=== PATIENT | male | born 1960 | race American Indian/Alaskan Native ===

== ENCOUNTER 2017-05-12 10:21 | Emergency (ER) | payer MEDICAID ==
[2017-05-12 10:21] VITALS: BMI 23.4
--- NOTE | 2017-05-12 11:02 | ED PDOC ---
HPI: General Adult Time Seen by Provider: 05/12/17 10:41 Chief Complaint (Nursing): Weakness/Neurological Deficit History Per: Patient Onset/Duration Of Symptoms: Other (2 months) Current Symptoms Are (Timing): Still Present Severity: Mild Additional Complaint(s): 12 lb weight loss over 2 months assoc with nausea, loss of apatite. Denies fever , no bloody or dark stools. No vomiting. Has had intermittent dizziness and body tremors. Non productive cough lately. Denies SOB Past Medical History Vital Signs: Last Vital Signs Temp 97.8 F 05/12/17 10:36 Pulse 77 05/12/17 10:36 Resp 16 05/12/17 10:36 BP 119/75 05/12/17 10:36 Pulse Ox 97 05/12/17 11:02 - Medical History PMH: Depression, Gastritis, HIV, HTN, Pancreatitis (2006) - Surgical History Surgical History: Cholecystectomy (2013) - Family History Family History: States: Unknown Family Hx - Home Medications Home Medications: Ambulatory Orders Medication Instructions Recorded Gabapentin 300 mg PO TID 04/25/13 Protonix 40 mg PO DAILY 04/25/13 Valtrex 500 mg PO Q12 04/25/13 Amlodipine Besylate 5 mg PO DAILY 08/01/14 Efavirenz [Sustiva] 600 mg PO DAILY 08/01/14 Ergocalciferol (Vitamin D2) 50,000 iu PO QWK 08/01/14 [Vitamin D] Fosamprenavir Calcium [Lexiva] 2 tab PO BID 08/01/14 Hydroxyzine Pamoate 25 mg PO Q4 08/01/14 Lisinopril 10 mg PO DAILY 08/01/14 Loperamide [Imodium] 1 tab PO PRN PRN 08/01/14 Pravastatin Sodium 80 mg PO HS 08/01/14 Raltegravir Potassium [Isentress] 400 mg PO BID 08/01/14 Dicyclomine [Dicyclomine HCl] 10 mg PO Q8 #10 cap 05/12/17 Meclizine [Meclizine*] 25 mg PO Q8 #15 tab 05/12/17 - Allergies Allergies/Adverse Reactions: Allergies Allergy/AdvReac Type Severity Reaction Status Date / Time No Known Allergies Allergy Verified 08/01/14 08:24 Review of Systems ROS Statement: Except As Marked, All Systems Reviewed And Found Negative Constitutional: Positive for: Weight loss Respiratory: Positive for: Cough Physical Exam - Reviewed Nursing Documentation Reviewed: Yes Vital Signs Reviewed: Yes - Physical Exam Appears: Positive for: Non-toxic, No Acute Distress Head Exam: Positive for: ATRAUMATIC, NORMAL INSPECTION, NORMOCEPHALIC Skin: Positive for: Normal Color, Warm, DRY Eye Exam: Positive for: EOMI, Normal appearance, PERRL ENT: Positive for: Normal ENT Inspection Neck: Positive for: Normal, Painless ROM Cardiovascular/Chest: Positive for: Regular Rate, Rhythm Respiratory: Positive for: CNT, Normal Breath Sounds Gastrointestinal/Abdominal: Positive for: Bowel Sounds, Soft, Tenderness (LLQ). Negative for: Organomegaly, Mass Back: Positive for: Normal Inspection Extremity: Positive for: Normal ROM Neurologic/Psych: Positive for: Alert, Oriented - Laboratory Results Result Diagrams: 05/12/17 11:14 05/12/17 11:14 - ECG O2 Sat by Pulse Oximetry: 97 Disposition - Clinical Impression Clinical Impression: Diverticulosis - Patient ED Disposition Is Patient to be Admitted: No Counseled Patient/Family Regarding: Studies Performed, Diagnosis, Need For Followup, Rx Given - Disposition Referrals: Sadie De Leon MD [Medical Doctor] - Shayne Cheney MD [Medical Doctor] - [facility] [Outside] Disposition: Routine/Home Disposition Time: 13:50 Condition: FAIR Prescriptions: Dicyclomine [Dicyclomine HCl] 10 mg PO Q8 #10 cap Meclizine [Meclizine*] 25 mg PO Q8 #15 tab Instructions: Diverticulosis Forms: [employer] (Czech)
--- NOTE | 2017-05-12 11:18 | RAD ---
HISTORY: COMPARISON: 04/29/2016. TECHNIQUE: Chest PA and lateral FINDINGS: LINES AND TUBES: None. LUNG AND PLEURA: The lungs are well inflated and clear. HEART AND MEDIASTINUM: The heart is not enlarged. The hilar and mediastinal contours are within normal limits. SKELETAL STRUCTURES: The bony structures are within normal limits for the patient's age. VISUALIZED UPPER ABDOMEN: Normal. OTHER FINDINGS: None. IMPRESSION: No active pulmonary disease.
[2017-05-12 11:39] LABS: ALB/GLOB RATIO 1.2 (1.0-2.1); ALBUMIN 4.2 g/dL (3.5-5.0); ALT/SGPT 29 U/L (21-72); AST/SGOT 25 U/L (17-59); BLOOD UREA NITROGEN 23 mg/dl (9-20); CALCIUM 9.6 mg/dL (8.4-10.2); GFR AFRICAN-AMERICAN > 60; GFR NON-AFRICAN AMERICAN 52
[2017-05-12 11:54] LABS: BASO % 0.2 % (0.0-2.0); EOS % 1.2 % (0.0-4.0); HEMOGLOBIN 15.1 g/dL (12.0-18.0); LYMPH # 1.5 K/uL (1.0-4.3); LYMPH % 39.7 % (20.0-40.0); MEAN CELL VOLUME 88.3 fl (80.0-94.0); MEAN CORPUSCULAR HEMOGLOBIN 29.7 pg (27.0-31.0); MEAN CORPUSCULAR HGB CONC 33.6 g/dL (33.0-37.0); MONO # 0.6 K/uL (0.0-0.8); NEUT # 1.7 K/uL (1.8-7.0); NEUT % 43.9 % (50.0-75.0); NRBC % 0.2 % (0.0-0.0); RBC 5.08 Mil/uL (4.40-5.90); RED CELL DISTRIBUTION WIDTH 14.6 % (11.5-14.5); WHITE BLOOD COUNT 3.8 K/uL (4.8-10.8)
[2017-05-12] MEDS ORDERED: Iohexol 300 100 ML IJ ONE (12:21)
--- NOTE | 2017-05-12 13:08 | CT ---
PROCEDURE: CT HEAD WITHOUT CONTRAST. HISTORY: r/o bleed COMPARISON: 10/23/2014 TECHNIQUE: Axial computed tomography images were obtained through the head/brain without intravenous contrast. Radiation dose: Total exam DLP = 869.15 mGy-cm. This CT exam was performed using one or more of the following dose reduction techniques: Automated exposure control, adjustment of the mA and/or kV according to patient size, and/or use of iterative reconstruction technique. FINDINGS: HEMORRHAGE: No intracranial hemorrhage. BRAIN: No mass effect or edema. No atrophy or chronic microvascular ischemic changes. VENTRICLES: Unremarkable. No hydrocephalus. CALVARIUM: Unremarkable. PARANASAL SINUSES: Unremarkable as visualized. No significant inflammatory changes. MASTOID AIR CELLS: Unremarkable as visualized. No inflammatory changes. OTHER FINDINGS: None. IMPRESSION: Normal CT of the Head. No intracranial mass, hemorrhage or evidence of acute infarct.
--- NOTE | 2017-05-12 13:36 | CT ---
PROCEDURE: CT Abdomen and Pelvis with contrast HISTORY: Abdominal pain and weight loss COMPARISON: None. TECHNIQUE: CT scan of the abdomen and pelvis was performed after administration of intravenous contrast. Oral contrast was not administered. Coronal and sagittal reformatted images were obtained. Contrast dose: 98 mL Omnipaque 300 Radiation dose: Total exam DLP = 416.74 mGy-cm. This CT exam was performed using one or more of the following dose reduction techniques: Automated exposure control, adjustment of the mA and/or kV according to patient size, and/or use of iterative reconstruction technique. FINDINGS: LOWER THORAX: The right lung base is clear. There is subsegmental atelectasis in the left lung base. LIVER: Normal in size and there is diffuse fatty infiltration. No gross lesion or intrahepatic ductal dilatation. GALLBLADDER AND BILE DUCTS: Surgically absent. Mild diffuse dilatation of the common bile duct is in keeping with postcholecystectomy status. PANCREAS: Normal in size with homogeneous enhancement. No gross lesion or ductal dilatation. SPLEEN: Normal in size and appearance. ADRENALS: No discrete nodule. KIDNEYS AND URETERS: Both kidneys are normal in size and there is homogeneous enhancement. There is bilateral cortical scarring. There is a 6 mm nonobstructing stone in the lower pole of the right kidney. No hydronephrosis. VASCULATURE: There are atherosclerotic aortoiliac calcifications. No aortic aneurysm. BOWEL: Evaluation of the bowel is limited in the absence of oral contrast. The small bowel loops are normal in caliber. There is extensive sigmoid diverticulosis without CT evidence for acute diverticulitis. No bowel dilatation or obstruction. APPENDIX: Normal appendix. PERITONEUM: No free fluid. No free air. LYMPH NODES: No enlarged lymph nodes. BLADDER: Grossly normal in appearance. REPRODUCTIVE: Unremarkable. BONES: No acute fracture. There is a hemangioma in the L3 vertebral body. OTHER FINDINGS: None. IMPRESSION: No acute abdominal or pelvic abnormality. Extensive sigmoid diverticulosis without CT evidence for acute diverticulitis. Fatty liver. 6 mm nonobstructing stone in the lower pole of the right kidney. Bilateral renal cortical scarring, likely a sequela of remote infection/inflammation.
[2017-05-12 14:21] VITALS: BP 110/60; PULSE 81; RESP 18; TEMP 98.6; O2SAT 98
== END 2017-05-12 14:26 | disposition home or self-care (01) ==
LOC: H.ER 10:21
DX: K57.30 Diverticulosis of large intestine without perforation or abscess without bleeding (principal); K76.0 Fatty (change of) liver, not elsewhere classified; I10 Essential (primary) hypertension
CPT/HCPCS: 70450; 71046; 74177; 80053; 85025; 99281; Q9967

== ENCOUNTER 2017-05-19 14:38 | Inpatient (IN) | payer MEDICAID, OTHER ==
[2017-05-19 14:38] VITALS: BMI 23.4
--- NOTE | 2017-05-19 14:53 | ED PDOC ---
HPI: Psych/Substance Abuse Time Seen by Provider: 05/19/17 14:52 Chief Complaint (Nursing): Psychiatric Evaluation Chief Complaint (Provider): crisis eval History Per: Patient, EMS Additional Complaint(s): 57-year-old male presents to emergency department for crisis evaluation. Patient was at his therapist's office this morning and was expressing thoughts of wanting to harm himself. Ambulance was called and he was brought here for further evaluation. Patient denies actual plan. States if he were to go through with suicide he would overdose on medications. Patient states he does not use any alcohol or drugs. Patient offers no acute medical complaints at this time PMD: Dr. Portillo Past Medical History Reviewed: Historical Data, Nursing Documentation, Vital Signs Vital Signs: Last Vital Signs Temp 98.0 F 05/19/17 14:42 Pulse 79 05/19/17 14:42 Resp 16 05/19/17 14:42 BP 122/71 05/19/17 14:42 Pulse Ox 98 05/19/17 14:42 - Medical History PMH: Depression, Gastritis, HIV, HTN - Surgical History Surgical History: Cholecystectomy (2013) - Family History Family History: States: No Known Family Hx - Social History Current smoker - smoking cessation education provided: No Alcohol: None Drugs: Denies - Home Medications Home Medications: Ambulatory Orders Medication Instructions Recorded Gabapentin 300 mg PO TID 04/25/13 Protonix 40 mg PO DAILY 04/25/13 Valtrex 500 mg PO Q12 04/25/13 Amlodipine Besylate 5 mg PO DAILY 08/01/14 Efavirenz [Sustiva] 600 mg PO DAILY 08/01/14 Ergocalciferol (Vitamin D2) 50,000 iu PO QWK 08/01/14 [Vitamin D] Fosamprenavir Calcium [Lexiva] 2 tab PO BID 08/01/14 Hydroxyzine Pamoate 25 mg PO Q4 08/01/14 Lisinopril 10 mg PO DAILY 08/01/14 Loperamide [Imodium] 1 tab PO PRN PRN 08/01/14 Pravastatin Sodium 80 mg PO HS 08/01/14 Raltegravir Potassium [Isentress] 400 mg PO BID 08/01/14 Dicyclomine [Dicyclomine HCl] 10 mg PO Q8 #10 cap 05/12/17 Meclizine [Meclizine*] 25 mg PO Q8 #15 tab 05/12/17 Oseltamivir [Tamiflu] 75 mg PO BID #10 cap 05/12/17 - Allergies Allergies/Adverse Reactions: Allergies Allergy/AdvReac Type Severity Reaction Status Date / Time No Known Allergies Allergy Verified 08/01/14 08:24 Review of Systems ROS Statement: Except As Marked, All Systems Reviewed And Found Negative Psych: Positive for: Depression, Suicidal ideation Physical Exam - Reviewed Nursing Documentation Reviewed: Yes Vital Signs Reviewed: Yes - Physical Exam Appears: Positive for: Well, Non-toxic, No Acute Distress Head Exam: Positive for: ATRAUMATIC, NORMAL INSPECTION, NORMOCEPHALIC Skin: Negative for: Rash Eye Exam: Positive for: Normal appearance Cardiovascular/Chest: Positive for: Regular Rate, Rhythm Respiratory: Positive for: Normal Breath Sounds Gastrointestinal/Abdominal: Positive for: Soft. Negative for: Tenderness, Distended, Guarding, Rebound Neurologic/Psych: Positive for: Alert, Oriented, Mood/Affect (flat) - Laboratory Results Result Diagrams: 05/19/17 15:50 05/19/17 15:50 - ECG Interpretation Of ECG: Sinus rhythm 80 bpm with PACs, reviewed by PA and ED attending O2 Sat by Pulse Oximetry: 98 Pulse Ox Interpretation: Normal - Other Rad CXR X-Ray: Interpreted by Me, Viewed By Me X-Ray Interpretation: no acute finding Medical Decision Making Medical Decision Makin57 year old male here for crisis eval Plan: Crisis consult 1:1 observation CBC CMP BAL UDS UA CXR EKG As per crisis counselor and psychiatrist mechanical applications engineer, Dr. Bermudez, patient does meet criteria for admission. Patient agrees to stay. Patient is medically stable for psychiatric admission. Disposition - Clinical Impression Clinical Impression: Depression - Patient ED Disposition Is Patient to be Admitted: Yes - Disposition Disposition Time: 17:17 Condition: FAIR - Pt Status Changed To: Hospital Disposition Of: Inpatient - Admit Certification Admit to Inpatient:: After my assessment, the patient will require hospitalization for at least two midnights. This is because of the severity of symptoms shown, intensity of services needed, and/or the medical risk in this patient being treated as an outpatient. - POA Present On Arrival: None Results - Lab Results Lab Results: 05/19/17 05/19/17 05/19/17 17:05 15:50 15:50 WBC 4.1 L RBC 4.99 Hgb 14.6 Hct 44.5 MCV 89.1 MCH 29.2 MCHC 32.8 L RDW 15.0 H Plt Count 203 MPV 9.2 Neut % (Auto) 40.0 L Lymph % (Auto) 45.4 H [place] % (Auto) 13.6 H Eos % (Auto) 0.8 Baso % (Auto) 0.2 Neut # (Auto) 1.7 L Lymph # (Auto) 1.9 [place] # (Auto) 0.6 Eos # (Auto) 0.0 Baso # (Auto) 0.0 Sodium 144 Potassium 4.2 Chloride 103 Carbon Dioxide 27 Anion Gap 18 BUN 20 Creatinine 1.5 Est GFR ( Amer) 58 Est GFR (Non-Af Amer) 48 Random Glucose 96 Calcium 9.7 Total Bilirubin 0.6 AST 28 ALT 46 Alkaline Phosphatase 55 Total Protein 8.2 Albumin 4.5 Globulin 3.7 Albumin/Globulin Ratio 1.2 Urine Color Urine Clarity Urine pH Ur Specific [place] Urine Protein Urine Glucose (UA) Urine Ketones Urine Blood Urine Nitrate Urine Bilirubin Urine Urobilinogen Ur Leukocyte Esterase Urine RBC (Auto) Urine Microscopic WBC Urine Opiates Screen Negative Urine Methadone Screen Negative Ur Barbiturates Screen Negative Ur Phencyclidine Scrn Negative Ur Amphetamines Screen Negative U Benzodiazepines Scrn Negative U Oth Cocaine Metabols Negative U Cannabinoids Screen Negative Alcohol, Quantitative < 10 05/19/17 15:20 WBC RBC Hgb Hct MCV MCH MCHC RDW Plt Count MPV Neut % (Auto) Lymph % (Auto) [place] % (Auto) Eos % (Auto) Baso % (Auto) Neut # (Auto) Lymph # (Auto) [place] # (Auto) Eos # (Auto) Baso # (Auto) Sodium Potassium Chloride Carbon Dioxide Anion Gap BUN Creatinine Est GFR ( Amer) Est GFR (Non-Af Amer) Random Glucose Calcium Total Bilirubin AST ALT Alkaline Phosphatase Total Protein Albumin Globulin Albumin/Globulin Ratio Urine Color Yellow Urine Clarity Clear Urine pH 6.0 Ur Specific [place] 1.017 Urine Protein Negative Urine Glucose (UA) Neg Urine Ketones Negative Urine Blood Negative Urine Nitrate Negative Urine Bilirubin Negative Urine Urobilinogen 0.2-1.0 Ur Leukocyte Esterase Neg Urine RBC (Auto) < 1 Urine Microscopic WBC 1 Urine Opiates Screen Urine Methadone Screen Ur Barbiturates Screen Ur Phencyclidine Scrn Ur Amphetamines Screen U Benzodiazepines Scrn U Oth Cocaine Metabols U Cannabinoids Screen Alcohol, Quantitative
[2017-05-19 16:04] LABS: BASO % 0.2 % (0.0-2.0); EOS % 0.8 % (0.0-4.0); HEMOGLOBIN 14.6 g/dL (12.0-18.0); LYMPH # 1.9 K/uL (1.0-4.3); LYMPH % 45.4 % (20.0-40.0); MEAN CELL VOLUME 89.1 fl (80.0-94.0); MEAN CORPUSCULAR HEMOGLOBIN 29.2 pg (27.0-31.0); MEAN CORPUSCULAR HGB CONC 32.8 g/dL (33.0-37.0); MEAN PLATELET VOLUME 9.2 fl (7.2-11.7); MONO # 0.6 K/uL (0.0-0.8); MONO % 13.6 % (0.0-10.0); NEUT # 1.7 K/uL (1.8-7.0); NRBC % 0.2 % (0.0-0.0); RBC 4.99 Mil/uL (4.40-5.90); WHITE BLOOD COUNT 4.1 K/uL (4.8-10.8)
--- NOTE | 2017-05-19 16:10 | RAD ---
HISTORY: clearance COMPARISON: 05/12/2017. FINDINGS: LUNGS: No active pulmonary disease. PLEURA: No significant pleural effusion identified, no pneumothorax apparent. CARDIOVASCULAR: No radiographic findings to suggest acute or significant cardiovascular disease. OSSEOUS STRUCTURES: No significant abnormalities. VISUALIZED UPPER ABDOMEN: Normal. OTHER FINDINGS: None. IMPRESSION: No active disease. No significant interval change compared to the prior examination(s).
[2017-05-19 16:30] LABS: ALB/GLOB RATIO 1.2 (1.0-2.1); ALBUMIN 4.5 g/dL (3.5-5.0); ALT/SGPT 46 U/L (21-72); AST/SGOT 28 U/L (17-59); BLOOD UREA NITROGEN 20 mg/dl (9-20); CALCIUM 9.7 mg/dL (8.4-10.2); GFR AFRICAN-AMERICAN 58; GFR NON-AFRICAN AMERICAN 48
[2017-05-19 17:25] LABS: URINE BILIRUBIN NEGATIVE (NEGATIVE); URINE BLOOD NEGATIVE (NEGATIVE); URINE CLARITY CLEAR (Clear); URINE COLOR YELLOW (YELLOW); URINE GLUCOSE (UA) NEG (Normal); URINE LEUKOCYTE ESTERASE NEG Leu/uL (Negative); URINE PROTEIN NEGATIVE (NEGATIVE); URINE UROBILINOGEN 0.2-1.0 mg/dL (0.2-1.0)
[2017-05-19 17:47] LABS: BARBITURATES, UR NEGATIVE (NEGATIVE); BENZODIAZEPINES, UR NEGATIVE (NEGATIVE); OPIATES, UR NEGATIVE (NEGATIVE); PHENCYCLIDINE, UR NEGATIVE (NEGATIVE)
[2017-05-19] MEDS ORDERED: Magnesium Hydroxide Susp 30 ml UD PO PRN (20:17)
[2017-05-19] MEDS ORDERED: DiphenhydrAMINE 50 mg/ml Inj IM PRN (20:17)
[2017-05-19] MEDS ORDERED: Alum-Mag Hydrox-Simethicone Susp (30 mL) PO PRN (20:17)
--- NOTE | 2017-05-19 20:29 | PCM.BM ---
Treatment Plan Problems - Problems identified on initial assessmt Feeling of Worthlessness Date Initiated: 05/19/17 Time Initiated: 20:28 Assessment reference: NA Status: Active Treatment assets and liabiliti Patient Assests: cooperative, self-reliant, ADL independent, good support system , negotiates basic needs Patient Liabilities: relationship conflicts, medical problems - Milieu Protocol Maintain good personal hygiene: daily Encourage regular showers, every shift Remind patient to perform daily oral care, every shift Assist patient to perform ADL's Conduct patient checks and document Observation sheet: Q15 minutes Maintain personal safety: every shift Educate patient to report safety concerns to staff, every shift Monitor environment for contraband/sharps Medication safety: Monitor for expected outcome, potential side effects: every shift, Assess barriers to learning: every shift, Assess readiness for medication education: every shift
[2017-05-19 22:08] VITALS: O2SAT 120
[2017-05-19] MEDS ORDERED: Pneumococcal 23-Valent Vaccine IM ONE (22:08)
[2017-05-20 07:07] LABS: T4 5.15 ug/dl (5.5-11.0)
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
--- NOTE | 2017-05-20 17:14 | CP.PCM.CON ---
<Patricio Frances - Last Filed: 05/20/17 17:51> History of Present Illness - History of Present Illness History of Present Illness: 57 yo M pmhx of pancreatitis, depression, low back pain, herpes, cholecystectomy , HIV, DM, peripheral neuropathy, HTN, Hyperlipidemia, chronic ankle and right knee pain and perianal herpes presents to [facility] voluntarily for recent suicidal ideations without active plan of action. Reports significant events over the past month: losing job, relying on partner and financial difficulties. Reports intermittent headaches at L temporal region, radiating to occipital region. intermittent. Denies photophobia, changes in vision, focal deficits. rates 6/ 10. Is not the worst headache of his life. Denies HI/AH/VH/CP/SOB/N/V/ constipation, diarrhea. Denies leg pain. Reports bilateral feet pain if on his feet for prolonged time. Denies symptoms of gastritis/acid reflux. Review of Systems - Constitutional Constitutional: As Per HPI, Headache - EENT Nose/Mouth/Throat: absent: Odynophagia - Cardiovascular Cardiovascular: absent: Chest Pain - Respiratory Respiratory: absent: Cough, Wheezing - Gastrointestinal Gastrointestinal: absent: Abdominal Pain, Constipation, Diarrhea, Nausea, Vomiting - Genitourinary Genitourinary: absent: Dysuria - Musculoskeletal Musculoskeletal: As Per HPI - Neurological Neurological: As Per HPI. absent: Numbness, Tingling - Psychiatric Psychiatric: As Per HPI, Depression, Suicidal Ideation. absent: Hallucinations , Homicidal Ideation, Visual Hallucinations Past Patient History - Infectious Disease Hx of Infectious Diseases: None - Past Medical History & Family History Past Medical History?: Yes - Past Social History Smoking Status: Unknown If Ever Smoked (denies) Alcohol: None Drugs: Denies Home Situation {Lives}: Friends, Roommate - CARDIAC Hx Cardiac Disorders: Yes Hx Hypercholesterolemia: Yes Hx Hypertension: Yes - PULMONARY Hx Respiratory Disorders: No Hx Tuberculosis: No - NEUROLOGICAL Hx Neurological Disorder: No HX Cerebrovascular Accident: No Hx Seizures: No Other/Comment: peripheral neuropathy - HEENT Hx HEENT Problems: Yes Other/Comment: TINNITUS, LEFT EAR - RENAL Hx Chronic Kidney Disease: No - ENDOCRINE/METABOLIC Hx Endocrine Disorders: No Hx Diabetes Mellitus Type 2: Yes - HEMATOLOGICAL/ONCOLOGICAL Hx Blood Disorders: Yes Hx Human Immunodeficiency Virus (HIV): Yes - INTEGUMENTARY Hx Dermatological Problems: No Other/Comment: perianal herpes - MUSCULOSKELETAL/RHEUMATOLOGICAL Hx Musculoskeletal Disorders: Yes Hx Back Pain: Yes Hx Falls: No Other/Comment: pain of feet, plantar pain - GASTROINTESTINAL Hx Gastrointestinal Disorders: Yes Hx Gastritis: Yes Hx Pancreatitis: Yes - GENITOURINARY/GYNECOLOGICAL Hx Genitourinary Disorders: No Hx Sexually Transmitted Disorders: No - PSYCHIATRIC Hx Depression: Yes 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, sober now) - SURGICAL HISTORY Hx Surgeries: Yes Hx Cholecystectomy: Yes (2013) - ANESTHESIA Hx Anesthesia: Yes Hx Anesthesia Reactions: No Hx Malignant Hyperthermia: No Meds Allergies/Adverse Reactions: Allergies Allergy/AdvReac Type Severity Reaction Status Date / Time No Known Allergies Allergy Verified 08/01/14 08:24 - Medications Medications: Current Medications Acetaminophen (Tylenol 325mg Tab) 650 mg PO Q4 PRN PRN Reason: Pain, moderate (4-7) Last Admin: 05/20/17 15:42 Dose: 650 mg Al Hydrox/Mg Hydrox/Simethicone (Maalox Plus 30 Ml) 30 ml PO Q4 PRN PRN Reason: Dyspepsia Diphenhydramine HCl (Benadryl) 50 mg IM Q6 PRN PRN Reason: Extrapyramidal S/S Unable PO Diphenhydramine HCl (Benadryl) 50 mg PO Q6 PRN PRN Reason: Extrapyramidal Symptoms Duloxetine HCl (Cymbalta) 30 mg PO DAILY [facility] Haloperidol (Haldol) 5 mg PO Q4 PRN PRN Reason: Agitation Haloperidol Lactate (Haldol) 5 mg IM Q4 PRN PRN Reason: Agitation, Unable to Take PO Lorazepam (Ativan) 2 mg IM Q4 PRN PRN Reason: Anxiety/Agitation,Unable PO Lorazepam (Ativan) 1 mg PO Q4 PRN PRN Reason: Anxiety/Agitation Magnesium Hydroxide (Milk Of Magnesia) 30 ml PO HS PRN PRN Reason: Constipation Trazodone HCl (Desyrel) 50 mg PO HS PRN PRN Reason: Insomnia Last Admin: 05/19/17 21:22 Dose: 50 mg Physical Exam - Constitutional Appears: Well, No Acute Distress - Head Exam Head Exam: ATRAUMATIC - Eye Exam Eye Exam: EOMI - Neck Exam Neck exam: Positive for: Full Rom - Respiratory Exam Respiratory Exam: Clear to Auscultation Bilateral, NORMAL BREATHING PATTERN. absent: Wheezes - Cardiovascular Exam Cardiovascular Exam: REGULAR RHYTHM, +S1, +S2 - GI/Abdominal Exam GI & Abdominal Exam: Normal Bowel Sounds, Soft. absent: Tenderness - Neurological Exam Neurological exam: Alert, CN II-XII Intact, Normal Gait, Oriented x3 - Psychiatric Exam Psychiatric exam: Depressed, Suicidal Ideation Results - Vital Signs Recent Vital Signs: Last Vital Signs Temp 97.7 F 05/20/17 09:00 Pulse 81 05/20/17 09:00 Resp 18 05/20/17 09:00 BP 122/78 05/20/17 09:00 Pulse Ox 120 H 05/19/17 20:14 - Labs Result Diagrams: 05/19/17 15:50 05/19/17 15:50 Labs: Laboratory Results - last 24 hr 05/19/17 05/19/17 05/20/17 15:20 17:05 06:00 Hemoglobin A1c Triglycerides 195 H Cholesterol 146 LDL Cholesterol Direct 64 HDL Cholesterol 33 Thyroxine (T4) 5.15 L TSH 3rd Generation 1.11 Urine Color Yellow Urine Clarity Clear Urine pH 6.0 Ur Specific [place] 1.017 Urine Protein Negative Urine Glucose (UA) Neg Urine Ketones Negative Urine Blood Negative Urine Nitrate Negative Urine Bilirubin Negative Urine Urobilinogen 0.2-1.0 Ur Leukocyte Esterase Neg Urine RBC (Auto) < 1 Urine Microscopic WBC 1 Urine Opiates Screen Negative Urine Methadone Screen Negative Ur Barbiturates Screen Negative Ur Phencyclidine Scrn Negative Ur Amphetamines Screen Negative U Benzodiazepines Scrn Negative U Oth Cocaine Metabols Negative U Cannabinoids Screen Negative 05/20/17 06:00 Hemoglobin A1c 5.8 Triglycerides Cholesterol LDL Cholesterol Direct HDL Cholesterol Thyroxine (T4) TSH 3rd Generation Urine Color Urine Clarity Urine pH Ur Specific [place] Urine Protein Urine Glucose (UA) Urine Ketones Urine Blood Urine Nitrate Urine Bilirubin Urine Urobilinogen Ur Leukocyte Esterase Urine RBC (Auto) Urine Microscopic WBC Urine Opiates Screen Urine Methadone Screen Ur Barbiturates Screen Ur Phencyclidine Scrn Ur Amphetamines Screen U Benzodiazepines Scrn U Oth Cocaine Metabols U Cannabinoids Screen Assessment & Plan - Assessment and Plan (Free Text) Plan: 57 yo M pmhx of pancreatitis, depression, low back pain, herpes, cholecystectomy , HIV, DM, peripheral neuropathy, HTN, Hyperlipidemia, chronic ankle and right knee pain and perianal herpes presents to [facility] voluntarily for recent suicidal ideations without active plan of action. Suicidal Ideation with depression - Currently managed by psychiatry HIV - 04/25/2017: VL: <20; CD4: 712; %: 35.6 - On [place]: nonformulary; asked patient to bring meds HTN - Continue home meds: Amlodipine and Lisinopril - Monitor vital signs pre DM - last a1c 04/25/2017: 5.5 - continue metformin - monitor glucose via CMP herpes -currently asx -Valtrex prn DVT prophylxaxis -pt ambulating -scds <Evelina Mcneil - Last Filed: 05/21/17 09:49> Meds - Medications Medications: Current Medications Acetaminophen (Tylenol 325mg Tab) 650 mg PO Q4 PRN PRN Reason: Pain, moderate (4-7) Last Admin: 05/20/17 15:42 Dose: 650 mg Al Hydrox/Mg Hydrox/Simethicone (Maalox Plus 30 Ml) 30 ml PO Q4 PRN PRN Reason: Dyspepsia Amlodipine Besylate (Norvasc) 5 mg PO DAILY [facility] Dicyclomine HCl (Bentyl) 10 mg PO Q8 [facility] Last Admin: 05/21/17 09:07 Dose: 10 mg Diphenhydramine HCl (Benadryl) 50 mg IM Q6 PRN PRN Reason: Extrapyramidal S/S Unable PO Diphenhydramine HCl (Benadryl) 50 mg PO Q6 PRN PRN Reason: Extrapyramidal Symptoms Duloxetine HCl (Cymbalta) 30 mg PO DAILY [facility] Last Admin: 05/21/17 09:08 Dose: 30 mg Ergocalciferol (Drisdol 50,000 Intl Units Cap) 1 cap PO QWK [facility] Gabapentin (Neurontin) 300 mg PO TID [facility] Last Admin: 05/21/17 09:08 Dose: 300 mg Haloperidol (Haldol) 5 mg PO Q4 PRN PRN Reason: Agitation Haloperidol Lactate (Haldol) 5 mg IM Q4 PRN PRN Reason: Agitation, Unable to Take PO Home Med (Valtrex) 500 mg PO Q12 [facility] Hydroxyzine Pamoate (Vistaril) 25 mg PO Q4 [facility] Last Admin: 05/21/17 09:14 Dose: 25 mg Lisinopril (Zestril) 10 mg PO DAILY [facility] Loperamide HCl (Imodium) 2 mg PO PRN PRN PRN Reason: Diarrhea Lorazepam (Ativan) 2 mg IM Q4 PRN PRN Reason: Anxiety/Agitation,Unable PO Lorazepam (Ativan) 1 mg PO Q4 PRN PRN Reason: Anxiety/Agitation Magnesium Hydroxide (Milk Of Magnesia) 30 ml PO HS PRN PRN Reason: Constipation Meclizine HCl (Antivert) 25 mg PO Q8 [facility] Last Admin: 05/21/17 09:07 Dose: 25 mg Metformin HCl (Glucophage) 500 mg PO BIDWM [facility] Last Admin: 05/21/17 09:07 Dose: 500 mg Pantoprazole Sodium (Protonix Ec Tab) 40 mg PO DAILY [facility] Last Admin: 05/21/17 09:14 Dose: 40 mg Pravastatin Sodium (Pravachol) 80 mg PO HS [facility] Last Admin: 05/20/17 21:07 Dose: 80 mg Trazodone HCl (Desyrel) 50 mg PO HS PRN PRN Reason: Insomnia Last Admin: 05/20/17 21:07 Dose: 50 mg Results - Vital Signs Recent Vital Signs: Last Vital Signs Temp 96.6 F L 05/20/17 17:00 Pulse 84 05/20/17 17:00 Resp 18 05/20/17 17:00 BP 123/64 05/20/17 17:00 Pulse Ox 120 H 05/19/17 20:14 - Labs Result Diagrams: 05/19/17 15:50 05/19/17 15:50 Labs: Laboratory Results - last 24 hr 05/20/17 05/20/17 06:00 06:00 Hemoglobin A1c 5.8 RPR Nonreactive Attending/Attestation - Attestation I have personally seen and examined this patient.: Yes I have fully participated in the care of the patient.: Yes I have reviewed all pertinent clinical information: Yes Notes (Text): 05/21/17 09:49 PATIENT SEEN AND EXAMINED. CASE DISCUSSED WITH RESIDENT. AGREE WITH FINDINGS AND PLAN
[2017-05-20] MEDS ORDERED: Ergocalciferol 50,000 Intl Units Cap PO SCH (17:45)
--- NOTE | 2017-05-20 18:13 | CARD ---
APPROVED REPORT EKG Measurement Heart [id number] <Conclusion> Sinus rhythm
[2017-05-20] MEDS ORDERED: VALTREX 500 MG PO SCH (21:00)
[2017-05-20] MEDS: Pravastatin Sodium 40 MG TAB PO SCH (21:07)
[2017-05-21] MEDS: Pantoprazole 40 mg EC Tab PO SCH (09:14)
--- NOTE | 2017-05-21 09:50 | PCM.PYCHPN ---
Psychiatric Progress Note - Psychiatric Progress Note Patient seen today, length of contact: Patient evaluated, case discussed w/ team , chart reviewed Patient Chief Complaint: "I'm okay." Problems Identified/Issues Discussed: Patient is goal oriented, stating that he wants to leave the hospital to finish his paper for school. He reports that he has a headache and does not want to increase the Cymbalta due to concerns that it maybe causing his headache. He denies acute AH/VH/SI/HI. He denies any active suicidal ideation/plan/intent. He feels more hopeful for the future. He reports difficulty sleeping at night. Medication Change: No Medical Record Reviewed: Yes Consults ordered or reviewed: Medicine Mental Status Examination - Cognitive Function Orientation: Person, Place, Situation, Time Memory: Intact Attention: WNL Concentration: WNL Association: WN Fund of Knowledge: WNL - Mood Mood: Depressed - Affect Affect: Constricted - Speech Speech: Appropriate - Formal Thought Process Formal Thought Process: No Impairment Psychotic Thoughts and Behaviors: NO AH/VH/paranoia/delusions - Suicidal Ideation Suicidal Ideation: No - Homicidal Ideation Homicidal Ideation: No Goal/Treatment Plan - Goal/Treatment Plan Need for Continued Stay: Severe depression anxiety, Discharge may exacerbated symptoms Progress Toward Problem(s) and Goals/Treatment Plan: Major Depressive Disorder -Individual and group therapy therapy -Psychoeducation -Continue Cymbalta 30 mg PO Daily, patient unwilling to increase dosage at this time -Disposition planning Estimated Date of D/C: 05/23/17
[2017-05-21] MEDS: Pravastatin Sodium 40 MG TAB PO SCH (22:23)
[2017-05-22 09:06] VITALS: PULSE 87; RESP 17; TEMP 97
[2017-05-22] MEDS: Pantoprazole 40 mg EC Tab PO SCH (09:13)
--- NOTE | 2017-05-22 12:26 | PCM.PYCHDC ---
Mental Status Examination - Mental Status Examination Orientation: Person, Place, Situation, Time Memory: Intact Mood: Neutral Affect: Broad Speech: Appropriate Attention: WNL Concentration: WNL Association: WNL Fund of Knowledge: WNL Formal Thought Process: No Impairment Description of patient's judgement and insight: Fair I/J Psychotic Thoughts and Behaviors: No AH/VH/paranoia/delusions Suicidal Ideation: No Current Homicidal Ideation?: No Discharge Summary - Discharge Note Reason for Hospitalization: As per initial HPI note: pt is 57ys old male, previous diagnosis of depression, not currently in treatment, pt has been feeling increasingly depressed for the past month, due to loosing his [employer] job resulting in financial stressors, pt started having conflicts with his partner due to not contributing enough with house hold expenses and chores pt also was having medical problems including gastritis and leg pain which made his depression worse, he reported low energy, low concentration, poor motivation increased sleep and poor appetite, on day of evaluation pt started to have suicidal thoughts, came to ER seeking help pt currently reports passive suicidal ideations without active plan on intent on the unit, denied homicidal ideations, denied perceptual disturbances no reported substance use Consultations:: List each consultation separately and include: 1. Reason for request. 2. Findings. 3. Follow-up Consultations: Medicine Summary of Hospital Course include:: 1. Description of specific treatment plan utilized for patients during their course of treatmen. 2. Summarize the time- course for resolution of acute symptoms and/or regressed behaviors. 3. Describe issues identified and worked on during hospitalization. 4. Describe medication utilized. 5. Describe medical problems identified and treated. 6. Reassessment of suicide risk Summary of Hospital Course: Patient was admitted to the psychiatry unit. Individual and group therapy were provided. Patient was started on Cymbalta and Trazodone. He reports that his mood has improved. He submitted a 48 hour letter requesting to be discharged. He will be discharged to home as he does not meet criteria for involuntary commitment. He is not an acute danger to himself or others. His partner was called for collateral history (see notes for more details) and he does not believe the patient is an acute danger to himself or others. Psychoeducation provided on the importance of compliance with treatment and outpatient therapy. - Final Diagnosis (DSM 5) Condition upon Discharge: STABLE DSM 5: Major Depressive Disorder Disposition: HOME/ ROUTINE Follow-up Treatment Plan: Major Depressive Disorder; patient is psychiatrically stable for discharge at this time -Individual and group therapy therapy -Psychoeducation -Continue Cymbalta 60 mg PO Daily and Trazodone 50 mg PO HS -Discharge to home Prescriptions/Medication Reconciliation: DULoxetine [Cymbalta] 60 mg PO DAILY #30 ecc traZODone [Desyrel] 50 mg PO HS #30 tab - Smoking Cessation Smoking Cessation Medication prescribed: No Reason for not providing: Not indicated - Antipsychotic Medications Pt discharged on 2 or more routine antipsychotic medications: No
[2017-05-22 14:57] VITALS: BP 100/60
== END 2017-05-22 15:05 | disposition home or self-care (01) | DRG 430 ==
LOC: H.ER 14:38 → H.ERHOLD 17:27 → H.PSYCH 19:58
PROVIDERS: ADMIT Psychiatry & Neurology Psychiatry; ATTEND Psychiatry & Neurology Psychiatry
PROC: GZHZZZZ Group Psychotherapy (ICD-10-PCS; principal; 2017-05-19)
PROC: GZ58ZZZ Individual Psychotherapy, Cognitive-Behavioral (ICD-10-PCS; 2017-05-19)
PROC: 3E0234Z Introduction of Serum, Toxoid and Vaccine into Muscle, Percutaneous Approach (ICD-10-PCS; 2017-05-20)
DX: F33.2 Major depressive disorder, recurrent severe without psychotic features (principal); E11.42 Type 2 diabetes mellitus with diabetic polyneuropathy; R45.851 Suicidal ideations; I10 Essential (primary) hypertension; E78.00 Pure hypercholesterolemia, unspecified; E78.5 Hyperlipidemia, unspecified; Z21 Asymptomatic human immunodeficiency virus [HIV] infection status; Z91.410 Personal history of adult physical and sexual abuse; Z91.411 Personal history of adult psychological abuse; Z23 Encounter for immunization